=== PATIENT | male | born 1990 | race Caucasian/White ===

== ENCOUNTER 2016-10-07 03:10 | Emergency (ER) | payer OTHER ==
[~2016-10-07 03:10] MED LIST: TAMIFLU75 M1 PO
[2016-10-07] MEDS ORDERED: NO MEDICATIONS (03:18)
== END 2016-10-07 04:32 | disposition home or self-care (01) ==
LOC: SED 03:10
DX: J02.0 Streptococcal pharyngitis (principal); F17.200 Nicotine dependence, unspecified, uncomplicated
CPT/HCPCS: 87880; 96372; 99283; J0561

== ENCOUNTER 2016-10-09 09:14 | Emergency (ER) | payer OTHER ==
[~2016-10-09 09:14] MED LIST changes: +NO MEDICATIONS
== END 2016-10-09 09:43 | disposition home or self-care (01) ==
LOC: SED 09:14
DX: J02.9 Acute pharyngitis, unspecified (principal); F17.210 Nicotine dependence, cigarettes, uncomplicated
CPT/HCPCS: 99282

== ENCOUNTER 2016-10-14 07:44 | Emergency (ER) | payer OTHER ==
--- NOTE | ~2016-10-14 | CR195 ---
[facility] A Service of [facility] & [facility] / [facility] RADIOLOGY TEXT RESULTS PATIENT: LINDA DENT LOCATION: SED : 88 UNIT #: [id number] AGE: [address]: Rogelio Shay MD SEX: M ORDER DR: [id number] [place] [place] [id number] E MR#: [id number] Acc #: [id number] NAME: LINDA DENT : 1990 SEX: M STUDY DATE/TIME: 10/14/2016 8:24 UNIT: SED ROOM: STUDY DESCRIPTION: Neck Soft Tissue Attending Physician: Rogelio Shay M.D. Ordering Physician: Rogelio Shay M.D. Primary Care Physician: Primary Care Physician No MEDICAL IMAGING REPORT This report is preliminary unless electronic signature is present. EXAM Neck soft tissues 2 views, 10/14/2016 HISTORY Throat swelling beginning last night. Diagnosed with strep throat for days ago. FINDINGS Two views of the neck soft tissues demonstrate normal oropharyngeal airway and proximal trachea. There is no retropharyngeal soft tissue swelling. No foreign body is seen. The visualized cervical spine is normal. IMPRESSION Negative neck soft tissues. Dictated by... Tay Maldonado M.D. THIS IS AN ELECTRONICALLY VERIFIED REPORT Tay Maldonado M.D. at 10/15/2016 8:05 AM MARCELLO/krystina TD: 10/14/2016 10:09 JOB #: [id number] MEDICAL IMAGING REPORT Page 1 of 1
[2016-10-14] MEDS ORDERED: CLEOCIN HCL300 M1 PO (09:33)
== END 2016-10-14 09:50 | disposition home or self-care (01) ==
LOC: SED 07:44
DX: J02.0 Streptococcal pharyngitis (principal); F32.9 Major depressive disorder, single episode, unspecified; F17.200 Nicotine dependence, unspecified, uncomplicated; Z98.890 Other specified postprocedural states; Z79.01 Long term (current) use of anticoagulants
CPT/HCPCS: 70360; 96372; 99283; J0696; J1100